=== PATIENT | female | born 1985 | race Caucasian/White ===

== ENCOUNTER 2016-08-18 15:35 | Emergency (ER) | payer OTHER ==
[~2016-08-18 15:35] MED LIST: ALBUTEROL17 GM NEB; ATIVAN PO; CELEXA PO; CELEXA20 MG PO; CLEOCIN PO; CYMBALTA PO; DARVOCET-N 1001 TA1 DOB; DICLOFENAC PO; DICYCLOMINE HCL20 MG PO; ERY-TAB500 MG PO; ERYC250 MG PO; FLEXERIL PO; IBUPROFEN800 MG PO; KEFLEX PO; KEFLEX500 MG PO; LEXAPRO; METHADONE PO; MULTI VITAMIN1 EACH PO; NAPROSYN500 MG PO; NO MEDICATIONS; ORTHO TRI-7 DAYS X PO; PREDNISONE PO; PRENATAL VITAMI1 TA3 PO; PYRIDIUM PO; SUPER B COMPLEX1 CAP PO; VICODIN 5/500 T1 TAB PO; VOLTAREN75 MG PO; ZITHROMAX PO
== END 2016-08-18 17:28 | disposition home or self-care (01) ==
LOC: SED 15:35
DX: K05.219 Aggressive periodontitis, localized, unspecified severity (principal); F17.210 Nicotine dependence, cigarettes, uncomplicated; J45.909 Unspecified asthma, uncomplicated; F41.9 Anxiety disorder, unspecified; Z88.0 Allergy status to penicillin; Z88.5 Allergy status to narcotic agent
CPT/HCPCS: 99283